=== PATIENT | female | born 1980 | race Caucasian/White ===

== ENCOUNTER 2016-12-01 06:00 | Inpatient (IN) | payer MEDICAID ==
[~2016-12-01] VITALS: Ht 162.6 cm; Wt 115.7 kg
--- NOTE | ~2016-12-01 | OR ---
[facility]GE[facility] 35 Y [address] ROOM: [place] [id number] LOCATION: GOBS ADMIT DATE: 12/02/2016 OR/Procedure Report DISCHARGE DATE: FAMILY PHYSICIAN: Moris Lei MD ATTENDING PHYSICIAN: FRANKLYN CALL SURGEON: Franklyn Call MD PLANT OPERATIONS ENGINEER: Moris Lei M.D. His assistance was required for delivery of the fetus as well as adequate exposure during the case. DATE OF PROCEDURE: 12/02/2016 PREOPERATIVE DIAGNOSES: 1. Intrauterine at 39 weeks. 2. History of 4 previous sections. 3. Gestational diabetes class A2. 4. Tobacco abuse. 5. Obesity. POSTOPERATIVE DIAGNOSES: 1. Intrauterine at 39 weeks. 2. History of 4 previous sections. 3. Gestational diabetes class A2. 4. Tobacco abuse. 5. Obesity. PROCEDURE PERFORMED: Repeat low transverse section. ANESTHESIA: Spinal. FINDINGS: Viable male . score 8 and 9. Weight of 7 pounds and 3 ounces. Placenta intact with 3-vessel cord. Normal uterus. Normal ovaries and fallopian tubes bilaterally. ESTIMATED BLOOD LOSS: 750 mL. COMPLICATIONS: None. INDICATIONS: The patient is a 35-year-old, G5, P4-0-0-4 with history of 4 previous sections, who presented for scheduled repeat section. She was counseled on the risks of surgery to include; but are not be limited to; bleeding; infection; damage to surrounding organs and tissues including bowel, bladder, blood vessels, ureters, and nerves. She was also counseled on the need for additional procedures or hospitalizations due to any complications. [facility] AGE: 35 Y [address] ROOM: [address] [address] LOCATION: GOBS ADMIT DATE: 12/02/2016 OR/Procedure Report DISCHARGE DATE: FAMILY PHYSICIAN: Moris Lei MD ATTENDING PHYSICIAN: FRANKLYN CALL DESCRIPTION OF PROCEDURE: The patient was taken to the operating room. Spinal anesthesia was placed. She was placed in dorsal supine position with leftward tilt. A Edmond catheter was placed. She was then prepped and draped in the usual sterile fashion. Anesthesia was found to be adequate. A time- out was performed. A scalpel was then used to make a Pfannenstiel incision, carried down to the underlying fascia. The fascial incision was extended bilaterally with Villela scissors. Sharp and blunt dissection was used to dissect the rectus muscles off the fascia superiorly and inferiorly. The rectus muscles were then divided in the midline. The peritoneum was identified and entered sharply. The peritoneal incision was extended. A bladder blade was placed for visualization. A scalpel was then used to make a hysterotomy in the lower uterine segment that was extended in a cephalad caudal direction. The head was then grasped and delivered. Nuchal cord x1 was noted and was reduced. The remainder of the fetus then delivered. Mouth and nose were bulb suctioned. The cord was clamped and cut. The infant was taken over to the warmer. Cord blood was obtained. The placenta then delivered spontaneously intact. The uterus was exteriorized and cleared of remaining clots and debris. The hysterotomy was closed in a running locked fashion using 0 chromic suture. A second layer of 0 chromic was run across in a running locked fashion as well for hemostasis. The right angle did require 3 [id number] sutures with 0 Vicryl for hemostasis and one was placed on the left angle. There was noted to be some bleeding from the serosa that was cauterized and then Surgicel was placed over the entirety of the incision after the uterus was replaced into the abdominal cavity. The hysterotomy was reexamined and noted to be hemostatic. The rectus muscles and fascia were examined and noted to be hemostatic. The fascia was then closed in a running fashion using 0 PDS suture. The subcutaneous tissue was irrigated and any areas of bleeding were cauterized. It was then closed with 2-0 Vicryl in a running fashion. The skin was closed with 4-0 Monocryl in a subcuticular fashion. Prevena was then placed over the incision. Instrument, sponge, and needle counts were correct prior to abdominal closure at the conclusion of the case. DISPOSITION: Mother stable. Baby in room with mother. MD JACOBO QUIROZ/lui /[id number] d: 12/02/162106 t: 12/08/162100, OPERATIVE SUMMARY
[2016-12-02] MEDS ORDERED: HUMALOG100 UNIT/1 SUB-Q (11:05)
[2016-12-02 11:06] LABS: BASOPHIL # 0.1 K/uL (0.0-0.2); BASOPHIL % 0.5 %; EOSINOPHIL # 0.1 K/uL (0.0-0.5); EOSINOPHIL % 1.1 %; HEMOGLOBIN 10.7 g/dL (11.0-15.0); IMMATURE GRANULOCYTE # 0.1 K/uL (0.0-0.3); IMMATURE GRANULOCYTE % 1.4 %; LYMPHOCYTE # 1.6 K/uL (0.8-4.0); LYMPHOCYTE % 15.7 %; MCH 23.9 pg (27.0-34.0); MCHC 30.6 gm/dL (32.0-36.5); MONOCYTE # 0.6 K/uL (0.0-1.0); MONOCYTE % 5.5 %; MPV 8.8 fl (9.4-12.4); NEUTROPHIL # (ANC) 7.7 K/uL (1.8-7.8); NEUTROPHIL % 75.8 %; NRBC % 0 /100WBC (0-0.00); PLATELET COUNT 257 K/uL (150-450); RBC 4.48 M/uL (3.50-5.50); WBC 10.2 K/uL (4.0-11.0)
[2016-12-02 11:07] LABS: MCV 78.1 fl (83.0-98.0); RDW-CV 16.2 % (11.9-14.6)
[2016-12-02] MEDS ORDERED: LEVEMIR100 UNIT/1 SUB-Q (11:07)
[2016-12-02] MEDS ORDERED: GLYNASE (MICRO1.5 MG PO (11:17)
[2016-12-02] MEDS ORDERED: PROVENTIL OR V6.7 GM INH (11:43)
[2016-12-03 05:23] LABS: BASOPHIL % 0.3 %; EOSINOPHIL # 0.2 K/uL (0.0-0.5); EOSINOPHIL % 1.4 %; HEMATOCRIT 28.3 % (33.0-46.0); HEMOGLOBIN 8.5 g/dL (11.0-15.0); IMMATURE GRANULOCYTE # 0.1 K/uL (0.0-0.3); LYMPHOCYTE # 1.8 K/uL (0.8-4.0); LYMPHOCYTE % 16.7 %; MCH 23.9 pg (27.0-34.0); MCV 79.5 fl (83.0-98.0); MONOCYTE # 0.6 K/uL (0.0-1.0); MONOCYTE % 6.1 %; NEUTROPHIL # (ANC) 7.8 K/uL (1.8-7.8); NEUTROPHIL % 74.5 %; NRBC % 0 /100WBC (0-0.00); PLATELET COUNT 216 K/uL (150-450); RBC 3.56 M/uL (3.50-5.50); RDW-CV 15.9 % (11.9-14.6); WBC 10.5 K/uL (4.0-11.0)
--- NOTE | 2016-12-03 05:56 | NUR ---
Last VS: T:97.9 P:95 R: 18 BP: 147/82 Pain ratin. Last pain med: Percocet Medicated at: 0530 Effective: Yes Lung sounds: wheezing, non-productive cough. Has had coughing for 1+ week Fundus: Umbilicus, firm, midline Lochia: Small flow Incision: Covered with wound vac Bowel sounds: Hypoactive Passing flatus: Yes Voiding well: Yes Significant event: Ambulated in halls x3 laps last evening. Voiding well. 1 more scheduled percocet. Saline lock remains in
--- NOTE | 2016-12-04 05:26 | NUR ---
VSS. Fundus Firm midline. 2Percocet at 2315 and Motrin at 0330. Home today.
[2016-12-04] MEDS ORDERED: SURFAK240 MG PO (11:01)
[2016-12-04] MEDS ORDERED: FEOSOL325 MG PO (11:02)
[2016-12-04] MEDS ORDERED: PERCOCET 5-3251 EACH PO (11:02)
[2016-12-04] MEDS ORDERED: MOTRIN800 MG PO (11:02)
== END 2016-12-04 11:50 | disposition disaster alternative care site (69) | DRG 765 ==
LOC: GOBS 12-02 09:50
PROVIDERS: ADMIT Obstetrics & Gynecology
PROC: 10D00Z1 Extraction of Products of Conception, Low, Open Approach (ICD-10-PCS; principal; 2016-12-02)
DX: O24.429 Gestational diabetes mellitus in childbirth, unspecified control (principal); Z68.41 Body mass index [BMI] 40.0-44.9, adult; E66.9 Obesity, unspecified; Z83.3 Family history of diabetes mellitus; Z3A.39 39 weeks gestation of pregnancy; Z37.0 Single live birth; O34.219 Maternal care for unspecified type scar from previous cesarean delivery
CPT/HCPCS: J0690; J1885; J2001; J2210; J2590; J7120

== ENCOUNTER 2016-12-15 21:21 | Emergency (ER) | payer MEDICAID ==
--- NOTE | ~2016-12-15 | ER ---
PATIENT'S NAME: DELMI ARIAS [facility] AGE: 35 Y [address] ROOM: [place] [address] LOCATION: [facility] ADMIT DATE: 12/15/2016 ER/Outpatient Report DISCHARGE DATE: 12/15/2016 FAMILY PHYSICIAN: Moris Lei MD ATTENDING PHYSICIAN: Jhonny Vang HISTORY OF PRESENT ILLNESS: This patient is a 35-year-old female, who came in with some drainage from her incisional wound. She was seen by Rosalba Rivero APRN here in the emergency department. She did culture the wound and the culture grew out moderate growth of Staph aureus, MRSA sensitive to all antibiotics except for penicillin, oxacillin, and erythromycin. The patient was not treated. We tried to contact the patient. We tried to contact the patient's sister and we could not get a hold of either individual. Around 11:00 p.m. to 11:30 p.m. Monday night 12/17, I did talk with Dr. Call, CLOTHES DESIGNER specialist who did on this patient. Dr. Call said that she would look into her charts to see if she had any other way of contacting this individual. She also said that she would contact the [facility], [place], if she could not find her and see if they had any other access to her being contacted. She wishes to let me know if she could not find any way to contact this individual Delmi Arias. MD EMILY SANTA/modl /[id number] d: 12/19/16 07 t: 12/22/16 182, OUTPATIENT REPORT
--- NOTE | ~2016-12-15 | ER ---
PATIENT'S NAME: DELMI BERNAL [facility] AGE: 35 Y [address] ROOM: [place] [address] LOCATION: [facility] ADMIT DATE: 12/15/2016 ER/Outpatient Report DISCHARGE DATE: 12/15/2016 FAMILY PHYSICIAN: Moris Lei MD ATTENDING PHYSICIAN: Jhonny Vang Time of Arrival: 7 hours. Time of Evaluation: 2127 hours. CHIEF COMPLAINT: infection. HISTORY OF PRESENT ILLNESS: The patient states that she had a done on 12/02/[address]. Reports 2 days ago, her sister was looking at her incision and was concerned that there was some white areas noted. The patient states she has had some clear colored drainage from it. She has been nauseated, has not vomited. She had a normal bowel movement today. She has not had any pain or discomfort with urination. Denies having a fever. She has not had chills. ALLERGIES: SHE HAS NO KNOWN ALLERGIES. CURRENT MEDICATIONS: On her chart and reviewed by me. PAST MEDICAL HISTORY: Gestational diabetes; this is her 5th , it was on 12/02/2016. SOCIAL HISTORY: She smokes half pack per day. Denies use of drugs and alcohol. REVIEW OF SYSTEMS: All negative other than those mentioned in the HPI. PHYSICAL EXAMINATION: VITAL SIGNS: On her chart and were reviewed by me. GENERAL: She is awake, alert, and oriented x4. SKIN: [place], warm, and dry. RESPIRATIONS: Even and nonlabored. Lung sounds are clear throughout. HEART: Regular rate and rhythm. ABDOMEN: Soft and nondistended. Bowel sounds are present. She does have an abdominal apron. Her incision is under the apron. No redness or warmth noted of the incision. Incision is well approximated. There is a small amount of serous type drainage from the area. Culture was obtained. The patient denies any PATIENT'S NAME: DELMI BERNAL [facility] AGE: 35 Y [address] ROOM: [place] [address] LOCATION: ED ADMIT DATE: 12/15/2016 ER/Outpatient Report DISCHARGE DATE: 12/15/2016 FAMILY PHYSICIAN: Moris Lei MD ATTENDING PHYSICIAN: Jhonny Vang pain when palpating along that area. IMPRESSION: Healing incision. PLAN: The patient is reassured that the incision is healing nicely. Discussed with her may take a little bit longer for it to be back to normal especially with being her 5th . She will be discharged home to rest, monitor the drainage. If she starts running a fever, notices change in the drainage from her incision, she is to contact her primary provider. She verbalized understanding. MERCEDES JEREZ APRN FOR MD ELIO SANTA/modl /[id number] d: 12/16/161 t: 12/20/16 1312, OUTPATIENT REPORT
[~2016-12-15 21:21] MED LIST: FEOSOL325 MG PO; GLYNASE (MICRO1.5 MG PO; HUMALOG100 UNIT/1 SUB-Q; LEVEMIR100 UNIT/1 SUB-Q; MOTRIN800 MG PO; PERCOCET 5-3251 EACH PO; PROVENTIL OR V6.7 GM INH; SURFAK240 MG PO
== END 2016-12-15 21:47 | disposition disaster alternative care site (69) ==
LOC: GMED 21:21
DX: Z48.89 Encounter for other specified surgical aftercare (principal)